=== PATIENT | female | born 1940 | race Caucasian/White ===

== ENCOUNTER → 2022-01-30 | Outpatient (CLI) | payer MEDICARE, BC ==
[2022-01-30 12:07] LABS: BASOPHILS % 0.3 % (0.0-1.0); EOSINOPHILS # (AUTO) 0.1 (0.0-0.4); EOSINOPHILS % 0.6 % (0.0-6.0); HEMATOCRIT 41.7 % (34.2-44.1); HEMOGLOBIN 12.5 g/dL (12.0-16.0); LYMPHOCYTES # (AUTO) 0.8 (1.0-3.2); LYMPHOCYTES % 8.7 % (18.0-39.1); MEAN CORPUSCULAR HEMOGLOBIN 28.3 pg (28-32); MEAN CORPUSCULAR VOLUME 94.6 fL (81-99); MONOCYTES # (AUTO) 0.7 (0.2-0.8); MONOCYTES % 8.2 % (4.4-11.3); NEUTROPHILS # (AUTO) 7.3 (2.1-6.9); NEUTROPHILS % 81.9 % (38.7-80.0); PLATELET COUNT 202 x10e3/uL (140-360); RED BLOOD COUNT 4.41 x10e6/uL (3.6-5.1); RED CELL DISTRIBUTION WIDTH 15.1 % (11.7-14.4)
[2022-01-30 12:37] LABS: ALBUMIN 3.4 g/dL (3.5-5.0); ANION GAP 14.8 mmol/L (8-16); CALCIUM 9.4 mg/dL (8.4-10.2); CREATININE, SERUM 0.92 mg/dL (0.57-1.11); POTASSIUM 3.8 mmol/L (3.5-5.1)
[2022-01-30 12:43] LABS: ERYTHROCYTE SEDIMENTATION RATE 8 mm/hr (0-20)
== END ==
LOC: RAD 11:41
PROVIDERS: ATTEND Podiatrist Foot & Ankle Surgery
DX: R60.0 Localized edema (principal)
CPT/HCPCS: 36415; 80053; 83036; 84134; 85025; 85651; 86141; 93970

== ENCOUNTER → 2022-02-13 | Outpatient (RCR) | payer MEDICARE, BC ==
[~2022-02-13] MED LIST: CLOTRIMAZOLE/BETAMETHASONE 45 GM CR TP ONE; LIDOCAINE VISC 2% SOLN 15 ML UDC ONE
== END ==
LOC: WCC 01-23 08:14
PROVIDERS: ATTEND Podiatrist Foot & Ankle Surgery
DX: E11.621 Type 2 diabetes mellitus with foot ulcer (principal); L97.528 Non-pressure chronic ulcer of other part of left foot with other specified severity; I87.332 Chronic venous hypertension (idiopathic) with ulcer and inflammation of left lower extremity; L97.821 Non-pressure chronic ulcer of other part of left lower leg limited to breakdown of skin; R60.0 Localized edema; E78.5 Hyperlipidemia, unspecified; G90.09 Other idiopathic peripheral autonomic neuropathy; I10 Essential (primary) hypertension; I87.2 Venous insufficiency (chronic) (peripheral); L97.521 Non-pressure chronic ulcer of other part of left foot limited to breakdown of skin; I89.0 Lymphedema, not elsewhere classified
CPT/HCPCS: 36415; 82948; 87071; 87075; 87186; 87205

== ENCOUNTER 2022-03-13 11:10 | Outpatient (RCR) | payer MEDICARE, BC ==
[~2022-03-13 11:10] MED LIST changes: +MINERAL OIL/PETROLAT/GLYCERI 6OZ BTL ONE; +SILVER SULFADIAZINE 50GM CREAM ONE; +TRIAMCINOLONE ACET 0.1% CREAM 15 GM TUBE ONE
[2022-03-13] MEDS ORDERED: TRIAMCINOLONE ACET 0.1% CREAM 15 GM TUBE ONE (12:55)
[2022-03-13] MEDS ORDERED: MINERAL OIL/PETROLAT/GLYCERI 6OZ BTL ONE (12:55)
[2022-03-13] MEDS ORDERED: SILVER SULFADIAZINE 50GM CREAM ONE (12:55)
== END 2022-03-15 ==
LOC: WCC 11:10
PROVIDERS: ATTEND Podiatrist Foot & Ankle Surgery
DX: E11.621 Type 2 diabetes mellitus with foot ulcer (principal); L03.119 Cellulitis of unspecified part of limb; I87.312 Chronic venous hypertension (idiopathic) with ulcer of left lower extremity; I87.311 Chronic venous hypertension (idiopathic) with ulcer of right lower extremity; I87.332 Chronic venous hypertension (idiopathic) with ulcer and inflammation of left lower extremity; L97.521 Non-pressure chronic ulcer of other part of left foot limited to breakdown of skin; L97.811 Non-pressure chronic ulcer of other part of right lower leg limited to breakdown of skin; L97.821 Non-pressure chronic ulcer of other part of left lower leg limited to breakdown of skin; L97.528 Non-pressure chronic ulcer of other part of left foot with other specified severity; I87.2 Venous insufficiency (chronic) (peripheral); I89.0 Lymphedema, not elsewhere classified; R60.0 Localized edema; E78.5 Hyperlipidemia, unspecified; I10 Essential (primary) hypertension; G90.09 Other idiopathic peripheral autonomic neuropathy; B95.2 Enterococcus as the cause of diseases classified elsewhere; B96.89 Other specified bacterial agents as the cause of diseases classified elsewhere
CPT/HCPCS: 87071; 87075; 87186; 87205

== ENCOUNTER 2022-04-10 11:20 | Outpatient (RCR) | payer MEDICARE, BC ==
[~2022-04-10 11:20] MED LIST changes: -CLOTRIMAZOLE/BETAMETHASONE 45 GM CR TP ONE
== END 2022-04-15 ==
LOC: WCC 11:20
PROVIDERS: ATTEND Podiatrist Foot & Ankle Surgery
DX: E11.621 Type 2 diabetes mellitus with foot ulcer (principal); L97.528 Non-pressure chronic ulcer of other part of left foot with other specified severity; L97.811 Non-pressure chronic ulcer of other part of right lower leg limited to breakdown of skin; L97.521 Non-pressure chronic ulcer of other part of left foot limited to breakdown of skin; L97.821 Non-pressure chronic ulcer of other part of left lower leg limited to breakdown of skin; I87.311 Chronic venous hypertension (idiopathic) with ulcer of right lower extremity; I87.312 Chronic venous hypertension (idiopathic) with ulcer of left lower extremity; I87.332 Chronic venous hypertension (idiopathic) with ulcer and inflammation of left lower extremity; L03.119 Cellulitis of unspecified part of limb; I87.2 Venous insufficiency (chronic) (peripheral); I89.0 Lymphedema, not elsewhere classified; R60.0 Localized edema; G90.09 Other idiopathic peripheral autonomic neuropathy; I10 Essential (primary) hypertension; E78.5 Hyperlipidemia, unspecified; B96.89 Other specified bacterial agents as the cause of diseases classified elsewhere; B95.2 Enterococcus as the cause of diseases classified elsewhere

== ENCOUNTER 2022-05-01 14:35 | Outpatient (RCR) | payer MEDICARE, BC ==
[~2022-05-01 14:35] MED LIST changes: +CADEXOMER IODINE 30 GM TUBE ONE; -MINERAL OIL/PETROLAT/GLYCERI 6OZ BTL ONE
== END 2022-05-16 ==
LOC: WCC 14:35
PROVIDERS: ATTEND Podiatrist Foot & Ankle Surgery
DX: E11.621 Type 2 diabetes mellitus with foot ulcer (principal); L97.821 Non-pressure chronic ulcer of other part of left lower leg limited to breakdown of skin; L97.528 Non-pressure chronic ulcer of other part of left foot with other specified severity; L97.811 Non-pressure chronic ulcer of other part of right lower leg limited to breakdown of skin; L97.521 Non-pressure chronic ulcer of other part of left foot limited to breakdown of skin; I87.332 Chronic venous hypertension (idiopathic) with ulcer and inflammation of left lower extremity; I87.311 Chronic venous hypertension (idiopathic) with ulcer of right lower extremity; I87.312 Chronic venous hypertension (idiopathic) with ulcer of left lower extremity; L03.119 Cellulitis of unspecified part of limb; I89.0 Lymphedema, not elsewhere classified; I87.2 Venous insufficiency (chronic) (peripheral); L98.9 Disorder of the skin and subcutaneous tissue, unspecified; R60.0 Localized edema; I10 Essential (primary) hypertension; G90.09 Other idiopathic peripheral autonomic neuropathy; B96.89 Other specified bacterial agents as the cause of diseases classified elsewhere; B95.2 Enterococcus as the cause of diseases classified elsewhere; E78.5 Hyperlipidemia, unspecified